=== PATIENT | female | born 1950 | race Caucasian/White ===

== ENCOUNTER → 2016-07-05 | Outpatient (CLI) | payer MEDICARE, OTHER ==
[~2016-07-05] MED LIST: METOPROLOL; NF-ESOM40C
--- NOTE | 2016-07-05 11:34 | Diagnostic Imaging Report ---
PROCEDURE: MR imaging cervical spine without contrast. TECHNIQUE: Multiplanar, multisequence MR imaging of the cervical spine was performed without contrast. INDICATION: Neck and thoracic spine pain. FINDINGS: There is straightening of the upper to mid cervical spine curvature. The alignment of the posterior spinal line is satisfactory. The vertebral body heights are preserved. There is moderate disc height loss at C5/6 level. There is no significant marrow signal abnormality. The foramen magnum and upper cervical canal are widely patent. The spinal cord has normal signal and caliber. C2/3: No disc herniation, no spinal canal or foraminal stenosis. C3/4: There is no disc herniation, no spinal canal or foraminal stenosis. C4/5: There is prominent disc spur complex and posterior ligamentous hypertrophy. There is moderate to severe spinal canal stenosis reducing the AP dimension of the canal to 6.5 mm with minimal cord compression. No cord signal abnormality. The foramina demonstrate bilateral moderate stenosis. C5/6: There is a mild disc spur complex and posterior ligamentous hypertrophy. There is mild to moderate spinal canal stenosis reducing the AP dimension of the canal to 8 mm without cord compression or cord signal abnormality. There is bilateral severe foraminal stenosis from uncovertebral and element of facet joint hypertrophy. C6-7: There is a disc spur complex and posterior ligamentous hypertrophy. There is mild spinal canal stenosis reducing the AP dimension of the canal to 9 mm. The neural foramina demonstrate mild stenosis bilaterally. C7/T1: There is no significant disc herniation, no spinal canal or foraminal stenosis. IMPRESSION: Mid to lower cervical spine prominent degenerative changes with multilevel spinal canal and foraminal stenosis as described. At C4/5, there is minimal cord compression with no cord signal abnormality. Dictated by: Dictated on workstation # [id number]
--- NOTE | 2016-07-05 11:46 | Diagnostic Imaging Report ---
EXAMINATION: Multiplanar, multisequence MRI of the thoracic spine performed without intravenous contrast. INDICATION: Back pain. FINDINGS: The alignment of the posterior spinal line is satisfactory. The vertebral body heights are preserved. There is disc desiccation at multiple levels. There is mild bone marrow edema involving the endplates around the mid thoracic spine. There are small anterior osteophytes in the mid and lower thoracic spine levels. There is however no disc herniation posteriorly into the spinal canal seen at any level. The spinal canal is widely patent with no spinal canal mass. No cord compression at any level. The spinal cord has normal caliber, contour and signal. The neural foramina appear also patent. There is suggestion of mild scoliotic curvature convex to the right at the lower thoracic spine levels. IMPRESSION: Mild degenerative changes. No significant disc herniation, spinal canal or foraminal stenosis at any level. Dictated by: Dictated on workstation # [id number]
== END ==
LOC: RAD 09:28
PROVIDERS: ATTEND Orthopaedic Surgery Orthopaedic Surgery of the Spine
DX: M54.6 Pain in thoracic spine (principal); M48.02 Spinal stenosis, cervical region; M46.02 Spinal enthesopathy, cervical region
CPT/HCPCS: 72141; 72146

== ENCOUNTER → 2016-07-24 | Outpatient (CLI) | payer MEDICARE, OTHER ==
--- NOTE | 2016-07-26 09:08 | ECHOCARDIOGRAPHY REPORT ---
DATE OF SERVICE: 07/24/2016 EXERCISE STRESS ECHOCARDIOGRAM PROCEDURE DATE: 07/24/2016. REFERRING PHYSICIAN: Dr. Tilley. FINDINGS: Baseline heart rate is 71. Baseline blood pressure is 105/65. Baseline electrocardiogram sinus rhythm with no ischemic changes. In summary, the patient started exercising with a baseline heart rate, blood pressure, electrocardiogram mentioned above. She was able to exercise for a total of 3 minutes and 45 seconds with standard Brian protocol. She achieved maximum heart rate of 146, which is 95% of maximally expected heart rate. With peak exercise level EKG was showing no diagnostic changes. Blood pressure was 133/60. During recovery the heart rate and blood pressure returned to baseline. EKG returned to baseline. Echocardiographic images were acquired and reviewed in the parasternal long axis, parasternal short axis, apical four chamber and apical two chamber views. Review of the images showed normal left ventricular size with normal contractility with no ischemic changes. CONCLUSION: 1. Fair exercise tolerance with a total of 3 minutes and 45 seconds with standard Brian protocol, total of 4.6 METs achieving 95% of maximum expected heart rate. 2. Appropriate heart rate and blood pressure response to exercise return to baseline during recovery. 3. Normal echocardiographic images with rest and with peak stress level with no ischemic changes. Job ID: [id number] DocumentID: [id number] Dictated Date: 07/24/2016 13:09:12 Meeting Facilitator Date: 07/24/2016 15:11:21 Dictated By: J LUIS CERVANTES MD
== END ==
LOC: CARD 09:46
PROVIDERS: ATTEND Internal Medicine Cardiovascular Disease
DX: R06.02 Shortness of breath (principal); I10 Essential (primary) hypertension; E78.2 Mixed hyperlipidemia; I34.0 Nonrheumatic mitral (valve) insufficiency; E11.9 Type 2 diabetes mellitus without complications; I07.1 Rheumatic tricuspid insufficiency
CPT/HCPCS: 93351

== ENCOUNTER → 2016-11-05 | Outpatient (CLI) | payer MEDICARE, OTHER ==
[~2016-11-05] VITALS: Ht 152.4 cm; Wt 73.5 kg
[2016-11-05] VITALS (9 sets, daily range): BP systolic 123–148; BP diastolic 69–78
[~2016-11-05] MED LIST changes: +ACETAMINOPHEN 325 MG TABLET/CAPLET (TYLENOL) PO SCH; +ASPI-586 PO; +BIOT1TAB2 PO; +CHOL20003 PO; +FENO40TA4 PO; +FUROSEMIDE 40 MG/4 ML INJ (LASIX) IV ONE; +FUROSEMIDE 40 MG/4 ML INJ (LASIX) ONE; +LACT1CAP64 PO; +MAGN500P34 MC; -METOPROLOL; +METOPROLOL PO; +NS IV 500 ML 500 ML IV SCH; +OMEG-33 PO; +UBID200C16 PO; +VITA1CAP PO; +diphenhydrAMINE 25 MG TAB (BENADRYL) PO SCH; +diphenhydrAMINE 50 MG/ML INJ (BENADRYL) IV SCH
[2016-11-05 19:25] LABS: BASOPHILS # (AUTO) 0.1 10^3/uL (0.0-0.1); BASOPHILS % (AUTO) 1 % (0-10); EOSINOPHILS # (AUTO) 0.1 10^3/uL (0.0-0.3); EOSINOPHILS % (AUTO) 1 % (0-10); LYMPHOCYTES # (AUTO) 2.3 X 10^3 (1.0-4.0); LYMPHOCYTES % (AUTO) 36 % (12-44); MEAN CORPUSCULAR HEMOGLOBIN 21 PG (25-34); MEAN CORPUSCULAR HGB CONC 30 G/DL (32-36); MEAN CORPUSCULAR VOLUME 72 FL (80-99); MEAN PLATELET VOLUME 10.3 FL (7.4-10.4); MONOCYTES # (AUTO) 0.6 X 10^3 (0.0-1.0); MONOCYTES % (AUTO) 9 % (0-12); NEUTROPHILS # (AUTO) 3.5 X 10^3 (1.8-7.8); NEUTROPHILS % (AUTO) 54 % (42-75); PLATELET COUNT 396 10^3/uL (130-400); RED BLOOD COUNT 3.81 10^6/uL (4.35-5.85); RED CELL DISTRIBUTION WIDTH 22.8 % (10.0-14.5); WHITE BLOOD COUNT 6.5 10^3/uL (4.3-11.0)
== END ==
LOC: SDC 13:02
PROVIDERS: ATTEND Family Medicine
DX: D64.9 Anemia, unspecified (principal)
CPT/HCPCS: 36415; 36430; 82728; 83036; 83540; 85025; 86850; 86900; 86901; 86920

== ENCOUNTER 2016-11-12 14:08 | Outpatient (CLI) | payer MEDICARE, OTHER ==
[~2016-11-12] VITALS: Ht 152.4 cm; Wt 71.7 kg
[~2016-11-12 14:08] MED LIST changes: -ACETAMINOPHEN 325 MG TABLET/CAPLET (TYLENOL) PO SCH; -FUROSEMIDE 40 MG/4 ML INJ (LASIX) IV ONE; -FUROSEMIDE 40 MG/4 ML INJ (LASIX) ONE; -NS IV 500 ML 500 ML IV SCH; -diphenhydrAMINE 25 MG TAB (BENADRYL) PO SCH; -diphenhydrAMINE 50 MG/ML INJ (BENADRYL) IV SCH
[2016-11-13] MEDS ORDERED: SUCR1TAB36 PO (13:46)
[2016-11-13] MEDS ORDERED: PANT40TA2 PO (13:46)
== END 2016-11-12 14:32 ==
LOC: PREOP 14:08
PROVIDERS: ATTEND Surgery
DX: Z01.818 Encounter for other preprocedural examination (principal); K21.9 Gastro-esophageal reflux disease without esophagitis; K44.9 Diaphragmatic hernia without obstruction or gangrene; D64.9 Anemia, unspecified

== ENCOUNTER → 2016-11-13 | Outpatient (CLI) | payer MEDICARE, OTHER ==
[~2016-11-13] VITALS: Ht 152.4 cm; Wt 71.7 kg
[2016-11-13] VITALS (7 sets, daily range): BP systolic 133–155; BP diastolic 66–87
[~2016-11-13] MED LIST changes: +ACETAMINOPHEN 325 MG TABLET/CAPLET (TYLENOL) PO ONE; +FUROSEMIDE 40 MG/4 ML INJ (LASIX) IV ONE; +FUROSEMIDE 40 MG/4 ML INJ (LASIX) ONE; +NS IV 500 ML 500 ML IV NR; +NS IV 500 ML 500 ML ONE; +PANT40TA2 PO; +SUCR1TAB36 PO; +diphenhydrAMINE 25 MG TAB (BENADRYL) PO ONE
[2016-11-13 15:31] LABS: RED BLOOD COUNT 4.61 10^6/uL (4.35-5.85); RED CELL DISTRIBUTION WIDTH 23.3 % (10.0-14.5); WHITE BLOOD COUNT 5.6 10^3/uL (4.3-11.0)
== END ==
LOC: SDC 08:02
PROVIDERS: ATTEND Family Medicine
DX: D64.9 Anemia, unspecified (principal)
CPT/HCPCS: 36415; 36430; 85027; 86850; 86900; 86901; 86920

== ENCOUNTER → 2016-11-13 | Day surgery (SDC) | payer MEDICARE, OTHER ==
[~2016-11-13] MED LIST changes: +ACETAMINOPHEN 325 MG TABLET/CAPLET (TYLENOL) PO PRN; +EPINEPHrine INJECTION 1 MG/ML AMP IV ONE; +EPINEPHrine INJECTION 1 MG/ML AMP ONE; -FUROSEMIDE 40 MG/4 ML INJ (LASIX) IV ONE; -FUROSEMIDE 40 MG/4 ML INJ (LASIX) ONE; +HURRICAINE EXT TUBE (BENZOCAINE) XX PRN; +HYDROcodone/APAP 5 MG/325 MG (LORTAB) TAB PO PRN; +LIDOCAINE JELLY 2% (XYLOCAINE) 5 ML TUBE ONE; +MIDAZOLAM 2 MG/2 ML (VERSED) VIAL ONE; -NS IV 500 ML 500 ML IV NR; +ONDANSETRON 4 MG/2 ML (SDV) Z0FRAN IV PRN; +fentaNYL INJECTION 100 MCG/2 ML AMP ONE; +morphine INJ 10 MG/ML 1ML (SYR OR VIAL) IV PRN
[2016-11-13 08:00] VITALS: BP 133/66
[2016-11-13] MEDS: NS IV 500 ML 500 ML IV PRN ×2 (10:15→12:45)
--- NOTE | 2016-11-13 10:16 | Conscious Sedation/ASA ---
Conscious Sedation Pre-Proced Time Reviewed: 09:30 ASA Class: 2 Airway Mallampati Classification: ([place] appropriate class) I. II. III, IV Lungs Heart ASA score ASA 1: a normal healthy patient ASA 2: a patient with a mild systemic disease (mid diabetes, controlled hypertension, obesity ASA 3: a patient with a severe systemic disease that limits activity (angina , COPD, prior Myocardial infarction) ASA 4: a patient with an incapacitating disease that is a constant threat to life (CHF, renal failure) ASA 5: a moribund patient not expected to survive 24 hrs. (ruptured aneurysm) ASA 6: a declared brain patient whose organs are being harvested. For emergent operations, add the letter E after the classification Grade 2 Sedation Plan: Analgesia, Amnesia, Plan communicated to team members, Discussed options with patient/fam, Discussed risks with patient/fam Note The patient is an appropriate candidate to undergo the planned procedure, sedation, and anesthesia. The patient immediately re-assessed prior to indication. ALIN CACERES MD Nov 13, 2016 10:16 am
--- NOTE | 2016-11-13 10:17 | Progress Note-Pre Operative ---
Pre-Operative Progress Note H&P Reviewed The H&P was reviewed, patient examined and no changes noted. Date Seen by Provider: Nov 13, 2016 Time Seen by Provider: :30 Date H&P Reviewed: Nov 13, 2016 Time H&P Reviewed: :30 Pre-Operative Diagnosis: anemia, GERD ALIN CACERES MD Nov 13, 2016 10:17 am
[2016-11-13] MEDS: fentaNYL INJECTION 100 MCG/2 ML AMP IVP PRN ×3 (12:27→13:13)
[2016-11-13] MEDS: MIDAZOLAM 2 MG/2 ML (VERSED) VIAL IVP PRN ×3 (12:40→13:10)
[2016-11-13] MEDS: LIDOCAINE JELLY 2% (XYLOCAINE) 5 ML TUBE MM PRN ×2 (12:45→13:07)
--- NOTE | 2016-11-13 13:45 | Progress Note-Post Operative ---
Post-Operative Progess Note Surgeon (s)/Risk Manager (s) Surgeon ALIN CACERES MD Risk Manager: none Pre-Operative Diagnosis anemia, GERD Post-Operative Diagnosis reflux esophagitis with ulcer and active venous bleeding, large HH(5cm), mild gastritis. chronic stage 2 ext and int hemorrhoids. Procedure & Operative Findings Date of Procedure 11/13/16 Procedure Performed/Findings EGD with bx and directed submucosal injection for hemostasis. Colonoscopy. Anesthesia Type CS Estimated Blood Loss Estimated blood loss (mL): minimal Specimens/Packing Specimens Removed GE ulcer, antrum ALIN CACERES MD Nov 13, 2016 1:45 pm
--- NOTE | 2016-11-13 13:47 | Discharge Inst-Surgical ---
D/C Lap Instructions-KIDO New, Converted, or Re-Newed RX: RX on Chart Follow Up Appt in 6 weeks Activity as tolerated High Fiber Diet 25g or more per day Avoid Alcohol, Caffeine, Spicy [place] and Acid foods. Drink 64 fluid oz or more of fluids per day. Symptoms to Report: Fever over 101 degree F, Nausea/Vomiting If any problems/questions: Contact your physician or go to Emergency Room ALIN CACERES MD Nov 13, 2016 1:47 pm
[2016-11-13 13:55] VITALS: BP 139/67
[2016-11-13 14:30] VITALS: BP 141/69
[2016-11-13 15:00] VITALS: BP 136/68
[2016-11-13 15:45] VITALS: BP 136/68
--- NOTE | 2016-11-14 04:26 | OPERATIVE REPORT ---
DATE OF SERVICE: 11/13/2016 ATTENDING PHYSICIAN: Dr. Tilley. PREOPERATIVE DIAGNOSES: Anemia and gastroesophageal reflux disease. POSTOPERATIVE DIAGNOSES: Reflux esophagitis class C with gastroesophageal ulceration with bleeding. Large hiatal hernia 5 cm in size, mild gastritis. Chronic stage II external and internal hemorrhoids. The remainder of the rectum and colon were normal. PROCEDURE: EGD with biopsy and submucosal injection for hemostasis and colonoscopy. SURGEON: Dr. Alin Caceres. ANESTHESIA: Conscious sedation. ESTIMATED BLOOD LOSS: Minimal. FINDINGS: EGD, reflux esophagitis class C with gastroesophageal ulceration and venous bleeding. This was cauterized as well as injected with epinephrine with good hemostasis. Large hiatal hernia approximately 5 cm in size, mild gastritis. Colonoscopy, chronic stage II external and internal hemorrhoids, not actively edematous or inflamed in the remainder of the colon and the rectum. DISPOSITION: The patient tolerated the procedure well. INDICATIONS: The patient is a 66-year-old female referred for anemia. She reports for the past 6 weeks, she has had periods of weakness and fatigue, which worsened. She had blood work drawn which showed severe anemia with a hemoglobin of 5.4 and hematocrit of 19.9 and was given 2 units of blood. She started to feel well; however, over time, she had recurrence of fatigue. She had a colonoscopy done in the past which was around 2011. She does not report any family history of colon cancer. Upon further questioning, she does report epigastric burning sensation as well as crampy pain. She states that she has a known hiatal hernia as well. Again, she was found to be anemic by laboratory analysis. DESCRIPTION OF PROCEDURE: The patient was brought to the endoscopy suite, laid in the left lateral decubitus position with the head slightly elevated. After adequate IV pain and sedative medications and conscious sedation anesthesia, the mouthpiece was applied. The endoscope was placed in the mouth, visualizing the pharynx and the hypopharyngeal region. Vocal cords, epiglottis and vallecula identified and appeared to be normal. The endoscope was then gently intubated in the esophageal opening and esophagus insufflated. The endoscope was then advanced to the first, second and third portions of the esophagus. At the level of the GE junction, a reflux esophagitis class C identified with an ulceration also identified with a venous bleeding. This was biopsied and cauterized. We also proceeded with submucosal injection using epinephrine, antegrade as well as retroflexed. In the retroflexed position, a large hiatal hernia approximately 5 cm in size was identified. There was mild gastritis noted. Pylorus and duodenum appeared normal. A biopsy was taken of the stomach and antrum using forceps and electrocautery with visualization of good hemostasis. The endoscope was then slowly withdrawn while taking second look and suctioning of residual air with no additional findings. The patient tolerated this portion of the procedure well. We will start her on Protonix 40 mg b.i.d. as well as Carafate q.i.d. She is also instructed to proceed with the necessary lifestyle and diet accommodation including small and more frequent meals, avoidance of eating at night as well as head elevation while lying supine. We will also evaluate her further for potential hiatal hernia repair including esophageal manometry study. Under the same conscious sedation anesthesia, we then proceeded with the colonoscopy portion of the procedure. A digital rectal examination was performed which revealed chronic stage II external and internal hemorrhoids, not actively edematous or inflamed and no bleeding. Normal sphincter tone was felt and there were no palpable masses. The endoscope was then intubated into the anus and the rectum was gently insufflated. The endoscope was then advanced to the valves of the [place] of the rectum with no polyps or any neoplasms identified. The endoscope was then advanced through the sigmoid colon where no diverticulosis identified. The endoscope was then advanced to the remainder of the descending, transverse, ascending colon, and the cecum. These segments were normal. There were no polyps or any neoplasms as well as no active bleeding source identified throughout the colon or rectum. The endoscope was then slowly withdrawn while taking a second look and suctioning of residual air with no additional findings. The patient tolerated the procedure well. We will recommend a high fiber diet with at least 25 to 30 grams of fiber per day as well as at least 64 fluid ounces of water to promote soft stools on a daily basis. Job ID: [id number] DocumentID: [id number] Dictated Date: 11/13/2016 13:38:55 Acetylene Plant Operator Date: 11/14/2016 02:36:35 Dictated By: ALIN CACERES MD [facility]
== END | disposition home or self-care (01) ==
LOC: ENDO 07:49
PROVIDERS: ATTEND Surgery
DX: K21.0 Gastro-esophageal reflux disease with esophagitis (principal); K44.9 Diaphragmatic hernia without obstruction or gangrene; K64.1 Second degree hemorrhoids; K29.71 Gastritis, unspecified, with bleeding; D64.9 Anemia, unspecified; I10 Essential (primary) hypertension; E78.00 Pure hypercholesterolemia, unspecified; Z87.19 Personal history of other diseases of the digestive system; Z79.82 Long term (current) use of aspirin; Z79.899 Other long term (current) drug therapy
CPT/HCPCS: 88305

== ENCOUNTER 2016-11-29 13:00 | Outpatient (RCR) | payer MEDICARE, OTHER ==
[2016-11-18 13:15] VITALS: BP 150/83
[2016-11-18 14:31] VITALS: BP 150/83
[2016-11-20] MEDS: IRON SUCROSE 250 MG/NS 100 ML IVPB IV SCH ×2 (13:37)
[2016-11-20 14:15] VITALS: BP 143/69
[2016-11-22] MEDS: IRON SUCROSE 250 MG/NS 100 ML IVPB IV SCH ×2 (13:13)
[2016-11-22 13:52] VITALS: BP 136/71
[2016-11-25] MEDS: IRON SUCROSE 250 MG/NS 100 ML IVPB IV SCH ×2 (13:13)
[2016-11-25 13:48] VITALS: BP 120/72
[2016-11-27 13:35] VITALS: BP 136/92
[~2016-11-29] VITALS: Ht 152.4 cm; Wt 74.4 kg
[~2016-11-29 13:00] MED LIST changes: +ACETAMINOPHEN 325 MG TABLET/CAPLET (TYLENOL) ONE; -ACETAMINOPHEN 325 MG TABLET/CAPLET (TYLENOL) PO ONE; -ACETAMINOPHEN 325 MG TABLET/CAPLET (TYLENOL) PO PRN; -EPINEPHrine INJECTION 1 MG/ML AMP IV ONE; -EPINEPHrine INJECTION 1 MG/ML AMP ONE; -HURRICAINE EXT TUBE (BENZOCAINE) XX PRN; -HYDROcodone/APAP 5 MG/325 MG (LORTAB) TAB PO PRN; +IRON SUCROSE 200 MG/10 ML (VENOFER) VIAL IV ONE; -LIDOCAINE JELLY 2% (XYLOCAINE) 5 ML TUBE ONE; -MIDAZOLAM 2 MG/2 ML (VERSED) VIAL ONE; -NS IV 500 ML 500 ML ONE; -ONDANSETRON 4 MG/2 ML (SDV) Z0FRAN IV PRN; -diphenhydrAMINE 25 MG TAB (BENADRYL) PO ONE; -fentaNYL INJECTION 100 MCG/2 ML AMP ONE; -morphine INJ 10 MG/ML 1ML (SYR OR VIAL) IV PRN
[2016-11-29] MEDS ORDERED: ACETAMINOPHEN 325 MG TABLET/CAPLET (TYLENOL) ONE (13:01)
[2016-11-29 14:24] VITALS: BP 139/71
== END 2017-01-04 | disposition home or self-care (01) ==
LOC: SDC 13:00
PROVIDERS: ATTEND Family Medicine
DX: D50.9 Iron deficiency anemia, unspecified (principal)
CPT/HCPCS: 96365

== ENCOUNTER → 2017-01-20 | Outpatient (CLI) | payer MEDICARE, OTHER ==
[~2017-01-20] MED LIST changes: -ACETAMINOPHEN 325 MG TABLET/CAPLET (TYLENOL) ONE; -IRON SUCROSE 200 MG/10 ML (VENOFER) VIAL IV ONE
--- NOTE | 2017-01-20 14:31 | Diagnostic Imaging Report ---
PROCEDURE: CT abdomen and pelvis without contrast. TECHNIQUE: Multiple contiguous axial images were obtained through the abdomen and pelvis without the use of intravenous contrast. INDICATION: Hematuria. Right lower quadrant pain and back pain. FINDINGS: The lung bases appear clear. There is a moderate-sized hiatal hernia. There are multiple low-attenuation lesions seen in the liver, probably related to cysts. This unenhanced exam does not evaluate well for a potential solid component in these lesions, however. They have lobulated well defined margins in favor of cysts and this appears to be a chronic finding as some of the cysts were seen on the 2007 comparison exam. The gallbladder demonstrates layering hyperdensities which may relate to sludge or noncalcified stones. The spleen is not enlarged. The pancreas and adrenal glands appear unremarkable for an unenhanced exam. The kidneys demonstrate no hydronephrosis and no stones. No ureteric or bladder stones. The uterus and adnexa appear grossly unremarkable. There is no bowel obstruction. No significant free fluid or fluid collection in the abdomen or pelvis is seen. There is minimal left convexity curvature of the lumbar spine which could be positional. There is a tiny fat-containing umbilical hernia. IMPRESSION: 1. No urinary tract stones or hydronephrosis. 2. Layering densities in the gallbladder may relate to sludge or noncalcified stones. This could be better evaluated with a gallbladder ultrasound, if needed. 3. Tiny fat-containing umbilical hernia. 4. Moderate sized hiatal hernia. Dictated by: Dictated on workstation # [id number]
== END ==
LOC: RAD 13:40
PROVIDERS: ATTEND Urology
DX: K87 Disorders of gallbladder, biliary tract and pancreas in diseases classified elsewhere (principal); K44.9 Diaphragmatic hernia without obstruction or gangrene; K42.9 Umbilical hernia without obstruction or gangrene
CPT/HCPCS: 74176

== ENCOUNTER 2018-06-09 10:39 | Outpatient (CLI) | payer MEDICARE, OTHER ==
[~2018-06-09] VITALS: Ht 152.4 cm; Wt 81.2 kg
[2018-06-09 11:00] VITALS: BP 129/63
[2018-06-09] MEDS ORDERED: methylPREDNISolone 40 MG/ML (Solu-MEDROL) VIAL IV PRN (11:45)
[2018-06-09] MEDS ORDERED: IRON DEXTRAN 1,000 MG/NS 250 ML IVPB IV ONE ×2 (11:45)
[2018-06-09] MEDS ORDERED: diphenhydrAMINE 50 MG/ML INJ (BENADRYL) IV PRN (11:45)
[2018-06-09] MEDS ORDERED: IRON DEXTRAN 25 MG/NS 6.25 ML TOTAL VOLUME IV ONE ×3 (11:45)
[2018-06-09] MEDS ORDERED: PANT40TA3 PO (11:46)
[2018-06-09] MEDS ORDERED: FENO160T37 PO (11:46)
[2018-06-09] MEDS ORDERED: ACETAMINOPHEN 325 MG TABLET PO PRN (12:00)
== END 2018-06-09 14:15 | disposition home or self-care (01) ==
LOC: SDC 10:39
PROVIDERS: ATTEND Family Medicine
DX: D50.9 Iron deficiency anemia, unspecified (principal)

== ENCOUNTER 2018-09-18 11:17 | Outpatient (RCR) | payer MEDICARE, OTHER ==
[2018-09-11] MEDS: FERRIC CARBOXYMALTOSE INJ 750 MG in NS (IVPB) 250 ML IV SCH (11:20)
[2018-09-11 12:25] VITALS: BP 151/78
[~2018-09-18] VITALS: Ht 152.4 cm; Wt 81.2 kg
[2018-09-18 10:57] VITALS: BP 138/74
[~2018-09-18 11:17] MED LIST changes: +FENO160T37 PO; +PANT40TA3 PO
[2018-09-18] MEDS: FERRIC CARBOXYMALTOSE INJ 750 MG in NS (IVPB) 250 ML IV SCH (11:18)
== END 2018-12-10 | disposition home or self-care (01) ==
LOC: SDC 11:17
PROVIDERS: ATTEND Nurse Practitioner Family
DX: D50.8 Other iron deficiency anemias (principal)
CPT/HCPCS: 96365

== ENCOUNTER → 2018-11-05 | Outpatient (CLI) | payer MEDICARE, OTHER ==
--- NOTE | 2018-11-05 14:28 | Diagnostic Imaging Report ---
INDICATION: Hematuria and back pain. Time of exam 12:13 p.m. FINDINGS: Single view of the abdomen shows the bowel gas pattern to be unremarkable. There are calcified densities in the pelvis which may represent phleboliths. No definite calcific densities overlying the renal shadows or expected locations of the ureters is seen. IMPRESSION: Unremarkable KUB. Dictated by: Dictated on workstation # [id number]
== END ==
LOC: RAD 12:02
PROVIDERS: ATTEND Nurse Practitioner Family
DX: R31.9 Hematuria, unspecified (principal); M54.9 Dorsalgia, unspecified
CPT/HCPCS: 74018

== ENCOUNTER → 2019-06-16 | Outpatient (CLI) | payer MEDICARE, OTHER ==
--- NOTE | 2019-06-17 09:39 | Diagnostic Imaging Report ---
INDICATION: Routine screening. Comparison is made with prior mammogram from 07/29/2017 and 05/26/2015. 2-D and 3-D bilateral screening mammography was performed with CAD. The current study was also evaluated with a Computer Aided Detection (CAD) system. 3-D tomosynthesis was also performed and reviewed. Scattered fibroglandular densities are identified bilaterally. The parenchymal pattern is stable. There are benign calcifications. No mass or malignant appearing microcalcifications are seen. Axillae are unremarkable. IMPRESSION: No mammographic features suspicious for malignancy are identified. ACR BI-RADS Category 2: Benign findings. Result letter will be mailed to the patient. Note: At least 10% of breast cancer is not imaged by mammography. Dictated by: Dictated on workstation # [id number]
== END ==
LOC: RAD 15:09
PROVIDERS: ATTEND Family Medicine
DX: Z12.31 Encounter for screening mammogram for malignant neoplasm of breast (principal)
CPT/HCPCS: 77067

== ENCOUNTER → 2020-06-29 | Outpatient (CLI) | payer MEDICARE, OTHER ==
[~2020-06-29] MED LIST changes: -PANT40TA3 PO; +PANT40TA52 PO
--- NOTE | 2020-06-30 09:12 | Diagnostic Imaging Report ---
EXAMINATION: Digital mammogram bilateral screening with CAD. INDICATION: Screening. COMPARISON: This study was compared to the prior exams of 06/16/2019, 07/29/2017, and 05/26/2015. PERSONAL HISTORY: At this time, there are no current complaints. FINDINGS: The fibroglandular tissue in both breasts is heterogeneously dense. This does limit the sensitivity of this exam. Overall, there does not appear to have been any significant change when compared to the prior study. No primary or secondary sign of malignancy is noted. IMPRESSION: There is no radiographic evidence for malignancy. ACR BI-RADS Category 1: Negative. Result letter will be mailed to the patient. Note: At least 10% of breast cancer is not imaged by mammography. Dictated by: Dictated on workstation # [id number]
== END ==
LOC: RAD 10:30
PROVIDERS: ATTEND Family Medicine
DX: Z12.31 Encounter for screening mammogram for malignant neoplasm of breast (principal)
CPT/HCPCS: 77063; 77067

== ENCOUNTER → 2021-08-07 | Outpatient (CLI) | payer MEDICARE, OTHER ==
--- NOTE | 2021-08-07 13:50 | Diagnostic Imaging Report ---
INDICATION: Postmenopausal state. COMPARISON: 06/10/2013. FINDINGS: AP Spine L1-L4: [BMD (g/cm2): 0.972] [T-Score: -1.9] [Z-Score: -0.8] [BMD Previous: 1.056] [BMD % Change: -8.0] LT Hip Neck: [BMD (g/cm2): 0.870] [T-Score: -1.2] [Z-Score: 0.2] LT Hip Total: [BMD (g/cm2):0.989] [T-Score:-0.1] [Z-Score: 1.0] [BMD Previous: 0.993] [BMD % Change: -0.4] RT Hip Neck: [BMD (g/cm2):0.726] [T-Score:-2.2] [Z-Score:-0.9] RT Hip Total: [BMD (g/cm2):0.807] [T-score:-1.6] [Z-Score:-0.5] [BMD Previous:0.856] [BMD % Change:-5.7] *Indicates significant change from prior examination based on 95% confidence level. World Health Organization criteria for BMD interpretation classify patients as Normal (T-score at or above -1.0), Osteopenic (T-score between -1.0 and -2.5) or Osteoporotic (T-score at or below -2.5). LIMITATIONS AND MODIFICATION: None. FRACTURE RISK (FRAX SCORE): The ten year probability of (%): Major Osteoporotic Fracture: [12.6] Hip Fracture: [2.9] IMPRESSION: 1. Osteopenia (Low bone mass). 2. No significant change in bone mineral density since prior examination. 3. See below National Osteoporosis Foundation guidelines on when to potentially initiate pharmacologic therapy. Based on the National Osteoporosis Foundation Guidelines, pharmacologic treatment should be initiated in any of the following, unless clinical conditions suggest otherwise: * Any patient with prior fragility fracture of the hip or vertebrae. A spine fracture indicates 5X risk for subsequent spine fracture and 2X risk for subsequent hip fracture. * Osteoporosis (T-score <-2.5). * Postmenopausal women and men age 50 and older with low bone mass/osteopenia (T-score between -1.0 and -2.5) by DXA and 10-year major osteoporotic fracture greater than 20% or a 10-year probability of hip fracture greater than 3%. These fracture risks are supplied above in the FRAX score, if applicable. * Clinician judgement and/or patient preferences may indicate treatment for people with 10-year fracture probabilities above or below these levels. Dictated by: Dictated on workstation # [id number]
--- NOTE | 2021-08-07 14:59 | Diagnostic Imaging Report ---
Indication: Routine screening. Comparison is made with prior mammogram from 06/29/2020 and 06/16/2019. 2-D and 3-D bilateral screening mammography was performed with CAD. CAD is utilized. The current study was also evaluated with a Computer Aided Detection (CAD) system. Both breasts are heterogeneously dense, limiting the sensitivity of mammography. The parenchymal pattern is stable. No mass or malignant appearing microcalcifications are seen. There are benign calcifications present. Axillae are unremarkable. IMPRESSION: BI-RADS Category 2 No mammographic features suspicious for malignancy are identified. ACR BI-RADS Category 2: Benign findings. Result letter will be mailed to the patient. Note: At least 10% of breast cancer is not imaged by mammography. Dictated by: Dictated on workstation # [id number]
== END ==
LOC: RAD 13:00
PROVIDERS: ATTEND Nurse Practitioner Family
DX: Z12.31 Encounter for screening mammogram for malignant neoplasm of breast (principal); M85.80 Other specified disorders of bone density and structure, unspecified site; Z78.0 Asymptomatic menopausal state
CPT/HCPCS: 77063; 77067; 77080

== ENCOUNTER → 2022-09-03 | Outpatient (CLI) | payer MEDICARE, OTHER ==
--- NOTE | 2022-09-04 10:15 | Diagnostic Imaging Report ---
INDICATION: Routine screening. COMPARISON: 08/07/2021 and 06/29/2020. TECHNIQUE: 2D and 3D bilateral screening mammography was performed with CAD. FINDINGS: Scattered fibroglandular densities are identified bilaterally. The parenchymal pattern is stable. No mass or malignant-appearing microcalcifications are seen. Occasional benign calcifications are noted. The axillae are unremarkable. IMPRESSION: No mammographic features suspicious for malignancy are identified. ACR BI-RADS Category 2: Benign findings. Result letter will be mailed to the patient. Note: At least 10% of breast cancer is not imaged by mammography. Dictated by: Dictated on workstation # [id number]
== END ==
LOC: RAD 09:30
PROVIDERS: ATTEND Family Medicine
DX: Z12.31 Encounter for screening mammogram for malignant neoplasm of breast (principal)
CPT/HCPCS: 77063; 77067